=== PATIENT | male | born 1975 | race Caucasian/White ===

== ENCOUNTER 2021-09-17 18:38 | Emergency (ER) | payer BC ==
[~2021-09-17 18:38] MED LIST: Morphine 4 MG/ML VIAL IVPUSH ONE
[2021-09-17] MEDS ORDERED: Ondansetron 4 MG/2 ML SDV IVPUSH ONE (18:42)
[2021-09-17] MEDS ORDERED: Ondansetron 4 MG/2 ML SDV ONE (18:44)
[2021-09-17] MEDS ORDERED: HYDROmorphone 2 MG/ML Syringe IVPUSH ONE ×2 (19:06→21:56)
[2021-09-17 19:25] LABS: BLOOD UREA NITROGEN,BUN 20 mg/dL (7.0-18.0); CARBON DIOXIDE,CO2 25.2 mmol/L (21.0-32.0); CHLORIDE,CL 99 mmol/L (98-107); ESTIMATED GFR 54.6 ml/min; GLUCOSE RANDOM 123 mg/dL (74-106); LIPASE 65 U/L (73-393); POTASSIUM,K 4.2 mmol/L (3.5-5.1); SODIUM,NA 136 mmol/L (136-148)
[2021-09-17] MEDS ORDERED: Pantoprazole 80 MG in Sodium Chloride 0.9% 10 ML IVPUSH ONE (22:18)
[2021-09-17] MEDS ORDERED: Alum Hydro/Mag Hydro/Simeth XS 15 ML, Lidocaine 2% 5 ML PO ONE ×2 (22:19)
[2021-09-17 23:30] VITALS: BP 167/71; PULSE 84
== END 2021-09-17 23:37 ==
LOC: MW.ED 18:38
DX: R07.9 Chest pain, unspecified (principal); I50.9 Heart failure, unspecified; Z95.4 Presence of other heart-valve replacement; Z88.0 Allergy status to penicillin; Z88.6 Allergy status to analgesic agent; Z20.822 Contact with and (suspected) exposure to COVID-19
CPT/HCPCS: 36415; 71045; 80053; 83690; 83735; 83880; 84484; 85025; 85610; 87635; 93005; 96374; 96375; 96376; 99285; A9270; C9113; J1170; J2270; J2405; 93010; J3490; U0002